=== PATIENT | female | born 1975 | race Caucasian/White ===

== ENCOUNTER 2019-01-17 16:52 | Outpatient (CLI) | payer OTHER | END 2019-01-17 16:53 | disposition critical access hospital (66) | LOC: EMS 16:52 | PROVIDERS: ATTEND Surgery | DX: S49.91XA Unspecified injury of right shoulder and upper arm, initial encounter (principal); M25.551 Pain in right hip; S09.90XA Unspecified injury of head, initial encounter; V80.010A Animal-rider injured by fall from or being thrown from horse in noncollision accident, initial encounter; Y93.52 Activity, horseback riding | CPT/HCPCS: A0425; A0427 ==

== ENCOUNTER 2019-01-17 16:57 | Emergency (ER) | payer OTHER ==
[2019-01-17] MEDS ORDERED: SODIUM CHLORIDE 0.9% 1,000 ML IV ONE ×2 (17:07→18:10)
[2019-01-17] MEDS ORDERED: ONDANSETRON 4 MG/2 ML VIAL IVP STA (17:07)
[2019-01-17] MEDS ORDERED: fentaNYL 100 MCG/2 ML VIAL IVP STA (17:07)
--- NOTE | 2019-01-17 17:11 | ED Physician Documentation ---
History of Present Illness - Stated complaint Stated Complaint: FALL OFF HORSE - Chief complaint Chief Complaint: Trauma Hd/Nk - History obtained from History obtained from: Patient - History of Present Illness Timing: Prior to arrival - Additonal information Additional information: Patient is a 43-year-old female who presents with right shoulder pain after fall from horse that occurred just prior to arrival. Patient was helmeted and practicing massage. Patient reports that the horse moved and ran off, galloping, and she felt that it was best to jump off of the horse at that point in time. Patient reports that she jumped and landed on her right side. Patient complains of right clavicle and shoulder pain, as well as right hip pain. Patient has not been ambulatory since time of fall. Patient believes she struck her head, but did not suffer loss of consciousness. Patient denies vision changes, epistaxis, intraoral trauma or bleeding. Patient also denies neck pain, back pain, rib pain, abdominal pain, or other extremity pain. Patient denies nausea, vomiting or other issues. Patient reports that her pain is tolerable if not moving. No anticoagulation except for half of an aspirin daily which she has not been compliant with over the past several days. Patient does receive infusions for psoriatic disease. Last infusion was approximately 3-1/2 weeks ago. No other improving or worsening factors noted. Review of Systems Eyes: denies: Loss of vision Nose: denies: Epistaxis Throat: denies: Dental pain / toothache Cardiac: denies: Chest pain / pressure Respiratory: denies: Dyspnea GI: denies: Abdominal Pain, Nausea, Vomiting Musculoskeletal: reports: Extremity pain. denies: Neck pain, Back pain Neurologic: reports: Head injury. denies: Headache, LOC PD PAST MEDICAL HISTORY - Past Medical History Past Medical History: Yes Other Past Medical History: Psoriatic disease - Past Surgical History Past Surgical History: No - Present Medications Home Medications: Ambulatory Orders Medication Instructions Recorded Confirmed Hydrocodone/Acetaminophen 1 each PO Q6H PRN #14 tablet 01/17/19 [Hydrocodon-Acetaminophen 5-325] Ondansetron Odt [Zofran] 4 mg TL Q6H PRN #10 tablet 01/17/19 - Allergies Allergies/Adverse Reactions: Allergies Allergy/AdvReac Type Severity Reaction Status Date / Time Sulfa (Sulfonamide Allergy Unknown Verified 01/17/19 17:09 Antibiotics) PD ED PE NORMAL - Vitals Vital signs reviewed: Yes - General General: Alert and oriented X 3, No acute distress, Well developed/nourished - HEENT HEENT: PERRL (Gross visual acuity intact. No nystagmus.), EOMI, Moist mucous membranes, Pharynx benign, Dentition benign, Other (No epistaxis or evidence of intraoral trauma.). No: Atraumatic (Atraumatic except for small area of bruising to right forehead along the line of helmet) - Neck Neck: No bony TTP - Cardiac Cardiac: RRR, No murmur, Strong equal pulses - Respiratory Respiratory: No respiratory distress, Clear bilaterally - Abdomen Abdomen: Soft, Non tender, Non distended - Back Back: No spinal TTP - Derm Derm: Normal color, Warm and dry, No rash - Extremities Extremities: No deformity, No tenderness to palpate, No edema, Other (Palpable tenderness over right clavicle extending into posterior shoulder only. Remainder of right upper extremity and other extremities without deformity, no tenderness, and otherwise unremarkable) - Neuro Neuro: Alert and oriented X 3, No motor deficit, No sensory deficit - Psych Psych: Normal mood, Normal affect Results - Vitals Vitals: Vital Signs - 24 hr 01/17/19 01/17/19 01/17/19 17:04 18:37 19:18 Temperature 37.2 C 36.5 C Heart Rate 78 72 71 Respiratory 18 18 16 Rate Blood Pressure 108/71 108/68 113/64 O2 Saturation 98 98 100 01/17/19 19:55 Temperature Heart Rate 72 Respiratory 18 Rate Blood Pressure 115/63 O2 Saturation 100 Oxygen O2 Source Room air - Labs Labs: Laboratory Tests 01/17/19 01/17/19 01/17/19 17:20 17:20 17:20 WBC 8.9 RBC 3.79 L Hgb 11.7 L Hct 34.9 L MCV 92.1 MCH 30.9 MCHC 33.5 RDW 12.6 Plt Count 168 MPV 10.9 H Neut # (Auto) 7.1 H Lymph # (Auto) 1.1 L Morrison # (Auto) 0.5 Eos # (Auto) 0.2 Baso # (Auto) 0.0 Absolute Nucleated RBC 0.00 Nucleated RBC % 0.0 PT 13.8 H INR 1.2 APTT 25.0 Sodium 143 Potassium 3.7 Chloride 110 Carbon Dioxide 22 Anion Gap 11.0 BUN 16 Creatinine 0.8 Estimated GFR (MDRD) 78 L Glucose 134 H Calcium 9.0 Total Bilirubin 0.5 AST 38 ALT 27 Alkaline Phosphatase 44 Total Protein 6.8 Albumin 4.0 Globulin 2.8 Albumin/Globulin Ratio 1.4 Lipase 27 Urine Color Urine Clarity Urine pH Ur Specific [place] Urine Protein Urine Glucose (UA) Urine Ketones Urine Occult Blood Urine Nitrite Urine Bilirubin Urine Urobilinogen Ur Leukocyte Esterase Urine RBC Urine WBC Ur Squamous Epith Cells Urine Bacteria Ur Microscopic Review Urine Culture Comments Urine HCG, Qual 01/17/19 20:20 WBC RBC Hgb Hct MCV MCH MCHC RDW Plt Count MPV Neut # (Auto) Lymph # (Auto) [place] # (Auto) Eos # (Auto) Baso # (Auto) Absolute Nucleated RBC Nucleated RBC % PT INR APTT Sodium Potassium Chloride Carbon Dioxide Anion Gap BUN Creatinine Estimated GFR (MDRD) Glucose Calcium Total Bilirubin AST ALT Alkaline Phosphatase Total Protein Albumin Globulin Albumin/Globulin Ratio Lipase Urine Color YELLOW Urine Clarity CLEAR Urine pH 5.5 Ur Specific [place] 1.025 Urine Protein NEGATIVE Urine Glucose (UA) NEGATIVE Urine Ketones 40 H Urine Occult Blood MODERATE H Urine Nitrite NEGATIVE Urine Bilirubin NEGATIVE Urine Urobilinogen 0.2 (NORMAL) Ur Leukocyte Esterase NEGATIVE Urine RBC 0-5 Urine WBC 0-3 Ur Squamous Epith Cells MOD Squamous H Urine Bacteria None Seen Ur Microscopic Review INDICATED Urine Culture Comments NOT INDICATED Urine HCG, Qual NEGATIVE PD MEDICAL DECISION MAKING - ED course Complexity details: reviewed results, re-evaluated patient, considered differential, d/w patient ED course: Patient presenting after fall from horse with largest complaint being right clavicle and shoulder pain.Patient was wearing a helmet and does believe that she hit her head, but denies loss of consciousness or other head injury symptoms. Did discuss possibility of closed head injury and possible concussion including precautions and restrictions for such. Patient also has small area of bruising to the right forehead likely due to the helmet. At this time, do not feel she requires CT imaging given low suspicion for facial fracture, skull fracture or intracranial bleed. Patient also denies and does not exhibit complaints on exam that would raise suspicions for vertebral spinal cord injury, rib trauma, abdominal trauma or other extremity trauma except for the right shoulder and right hip. Patient had received a large amount of fentanyl prior to arrival and continued with another small dose, as well as IV fluids. Patient did continue to have discomfort but declined further narcotics and requested ibuprofen which was provided. Screening lab work and urinalysis returned relatively unremarkable (no gross blood in urine). Plain films of chest and pelvis did not indicate acute pathology, but shoulder plain films reflected comminuted midshaft clavicle fracture. Discussed patient with orthopedic surgery on-call who felt that patient was appropriate to place in sling and treat as an outpatient. Discussed all radiological findings with patient and CD of images provided. Also discussed use of pain and nausea medications for home, sling use, other restrictions, primary care and orthopedic surgery follow- up. Patient and friends noted understanding and are comfortable with discharge plan. Departure - Departure Disposition: 01 Home, Self Care Clinical Impression: Clavicle fracture Qualifiers: Encounter type: initial encounter Clavicle location: shaft Fracture type: closed Fracture alignment: displaced Laterality: right Qualified Code(s): S42.021A - Displaced fracture of shaft of right clavicle, initial encounter for closed fracture Closed head injury Qualifiers: Encounter type: initial encounter Qualified Code(s): S09.90XA - Unspecified injury of head, initial encounter Condition: Good Instructions: ED Fx Clavicle, ED Concussion, ED Head Injury Closed Follow-Up: your,doctor [Other] - Within 3 Days Rey Ortiz MD [Provider Admit Priv/Credential] - Within 3 Days Prescriptions: Hydrocodone/Acetaminophen [Hydrocodon-Acetaminophen 5-325] 1 each PO Q6H PRN #14 tablet PRN Reason: pain Ondansetron Odt [Zofran] 4 mg TL Q6H PRN #10 tablet PRN Reason: Nausea / Vomiting Comments: Please be aware of possible concussion and concussion symptoms. Recommend avoidance of all activities that could result in striking of head again. May use ibuprofen/Tylenol as needed for discomfort and apply ice to areas of swelling or contusion, as well as any bruising. Please follow-up with primary care physician in next 2 to 3 days for reevaluation approval to return to full activity. Additionally, please keep arm in the sling given your clavicle fracture. Recommend applying ice to the area to avoid worsening swelling and pain. May also use ibuprofen/Tylenol as needed, however, if using [place] as prescribed, please do not combine with Tylenol, alcohol, or driving. If taking [place] regularly, recommend use of stool softener or laxative to avoid constipation. May also use Zofran as prescribed for nausea control. Please follow-up with Orthopedic surgeon in the next 2 to 3 days. Return to ED sooner if expands worsening symptoms or have other concerns.
[2019-01-17 17:24] LABS: BASOPHILS % (AUTO) 0.3 %; EOSINOPHILS # (AUTO) 0.2 10^3/uL (0.0-0.7); EOSINOPHILS % (AUTO) 1.8 %; HGB - HEMOGLOBIN 11.7 g/dL (12.0-16.0); LYMPHOCYTES # (AUTO) 1.1 10^3/uL (1.5-3.5); LYMPHOCYTES % (AUTO) 11.9 %; MEAN CORPUSCULAR HEMOGLOBIN 30.9 pg (27.0-31.0); MEAN CORPUSCULAR HGB CONC 33.5 g/dL (32.0-36.0); MEAN CORPUSCULAR VOLUME 92.1 fL (81.0-99.0); MEAN PLATELET VOLUME 10.9 fL (7.9-10.8); MONOCYTES # (AUTO) 0.5 10^3/uL (0.0-1.0); MONOCYTES % (AUTO) 5.9 %; NEUTROPHILS # (AUTO) 7.1 10^3/uL (1.5-6.6); NEUTROPHILS % (AUTO) 79.8 %; PLT - PLATELET COUNT 168 10^3/uL (130-450); RED BLOOD COUNT 3.79 10^6/uL (4.20-5.40); RED CELL DISTRIBUTION WIDTH 12.6 % (12.0-15.0); WHITE BLOOD COUNT 8.9 x10^3/uL (4.8-10.8)
[2019-01-17 17:30] LABS: INR 1.2 (0.8-1.2); PT - PROTHROMBIN TIME 13.8 secs (9.9-12.6)
[2019-01-17 17:38] LABS: ALBUMIN/GLOBULIN RATIO 1.4 (1.0-2.2); BILIRUBIN,TOTAL 0.5 mg/dL (0.2-1.0); CREATININE 0.8 mg/dL (0.4-1.0); TOTAL PROTEIN 6.8 g/dL (6.7-8.2)
[2019-01-17] MEDS ORDERED: IBUPROFEN 600 MG TABLET PO STA (18:10)
[2019-01-17] MEDS ORDERED: IBUPROFEN 800 MG TABLET PO STA (18:13)
--- NOTE | 2019-01-17 18:32 | XRAY Report ---
Reason: fall from horse Procedure Date: 01/17/2019 Accession Number: [id number] / [id number] Procedure: XR - Pelvis 1 View CPT Code: FULL RESULT: EXAM: PELVIS RADIOGRAPHY EXAM DATE: 01/17/2019 05:58 PM. CLINICAL HISTORY: Fall from horse. COMPARISON: None. TECHNIQUE: 1 view. FINDINGS: Bones: Normal. No fracture or bone lesion. Joints: The visualized hip, pubis symphysis, and sacroiliac joints are preserved. No subluxation. Soft Tissues: IUD in the pelvis. IMPRESSION: Normal pelvis radiography. [facility]
--- NOTE | 2019-01-17 18:34 | XRAY Report ---
Reason: fall from horse Procedure Date: 01/17/2019 Accession Number: [id number] / [id number] Procedure: XR - Shoulder 2 View RT CPT Code: FULL RESULT: EXAM: RIGHT SHOULDER RADIOGRAPHY EXAM DATE: 01/17/2019 05:58 PM. CLINICAL HISTORY: Fall from horse. COMPARISON: None. TECHNIQUE: 3 views. FINDINGS: Bones: Comminuted fracture of the midportion of the right clavicle. No additional fractures or dislocations are seen in the right shoulder. Joints: The glenohumeral and acromioclavicular joints are normal. Soft tissues: The visualized hemithorax is unremarkable. No soft tissue swelling. IMPRESSION: Comminuted fracture of the midportion of the right clavicle. [facility]
--- NOTE | 2019-01-17 18:35 | XRAY Report ---
Reason: fall from horse Procedure Date: 01/17/2019 Accession Number: [id number] / [id number] Procedure: XR - Chest 1 View X-Ray CPT Code: 43240 FULL RESULT: EXAM: CHEST RADIOGRAPHY EXAM DATE: 01/17/2019 05:58 PM. CLINICAL HISTORY: Fall from horse. COMPARISON: None. TECHNIQUE: 2 frontal views. FINDINGS: Lungs/Pleura: No focal opacities evident. No pleural effusion. No pneumothorax. Mediastinum: Within exam limitations, the cardiomediastinal contour is normal. Other: Comminuted fracture of the midportion of the right clavicle. IMPRESSION: Comminuted fracture of the right clavicle. No other evidence of acute traumatic injury in the chest. [facility]
[2019-01-17 19:55] VITALS: BP 115/63
[2019-01-17] MEDS ORDERED: ONDANSETRON ODT 4 MG TABLET TL STA (20:05)
[2019-01-17] MEDS ORDERED: HYDROcod/ACETAM 5/325 MG TABLET PO STA (20:06)
[2019-01-17 20:32] LABS: BILIRUBIN,URINE NEGATIVE (NEGATIVE); GLUCOSE, URINE (UA) NEGATIVE (NEGATIVE); KETONES,URINE (UA) 40 mg/dL (NEGATIVE); LEUKOCYTE ESTERASE, URINE NEGATIVE (NEGATIVE); NITRITE,URINE NEGATIVE (NEGATIVE); OCCULT BLOOD,URINE MODERATE (NEGATIVE); PH,URINE 5.5 PH (5.0-7.5); PROTEIN,URINE NEGATIVE (NEGATIVE); UROBILINOGEN,URINE 0.2 (NORMAL) E.U./dL (NORMAL)
[2019-01-17 20:38] LABS: BACTERIA,URINE None Seen /HPF (None Seen); CLARITY,URINE CLEAR (CLEAR); HCG UR QUAL NEGATIVE; RBC,URINE 0-5 /HPF (0-5); SQUAMOUS EPITHELIAL CELL,UR MOD Squamous (<= Few)
== END 2019-01-17 20:50 | disposition home or self-care (01) ==
LOC: ED 16:57
DX: S42.021A Displaced fracture of shaft of right clavicle, initial encounter for closed fracture (principal); S09.90XA Unspecified injury of head, initial encounter; S00.83XA Contusion of other part of head, initial encounter; V80.010A Animal-rider injured by fall from or being thrown from horse in noncollision accident, initial encounter; Y93.K9 Activity, other involving animal care
CPT/HCPCS: 36415; 71045; 72170; 73030; 80053; 81001; 81025; 83690; 85025; 85610; 85730; 96361; 96374; 99284; A9270; Q0162; 81003; 87086